=== PATIENT | male | born 2005 ===

== ENCOUNTER 2024-04-25 10:24 | Emergency (ER) | payer OTHER ==
[2024-04-25 10:36] VITALS: RESP 18
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
[2024-04-25 12:44] VITALS: BP 135/88; PULSE 83; TEMP 98.1
== END 2024-04-25 12:44 | disposition home or self-care (01) ==
LOC: EC 10:24
CPT/HCPCS: 70450; 72100; 73502; 99284